=== PATIENT | female | born 1970 | race Caucasian/White ===

== ENCOUNTER 2020-01-13 10:46 | Inpatient (IN) ==
[2020-01-13] MEDS ORDERED: cefOXitin 2,000 MG in Water for inj. (sterile) 20 ML IVP ONE (11:22)
[2020-01-13] MEDS ORDERED: Promethazine 6.25 MG in 0.9 % Sodium Chloride 50 ML IVPB PRN (11:26)
[2020-01-13] MEDS ORDERED: Ringers Solution, Lactated 1,000 ML IVC SCH (11:30)
[2020-01-13] MEDS ORDERED: *HR* Propofol 200 MG/20 ML VIAL IVP ONE (12:03)
[2020-01-13] MEDS ORDERED: *HR* Rocuronium Bromide 50 MG/5 ML VIAL ONE ×2 (12:04→14:46)
[2020-01-13] MEDS ORDERED: Ondansetron 4 MG/2 ML VIAL ONE (12:04)
[2020-01-13] MEDS ORDERED: Dexamethasone 4 MG/ML VIAL ONE (12:04)
[2020-01-13] MEDS ORDERED: Lidocaine -MPF 2% 2 ML VIAL ONE (12:04)
[2020-01-13] MEDS ORDERED: *HR* Midazolam HCl 2 MG/2 ML VIAL ONE (12:15)
[2020-01-13] MEDS ORDERED: *HR* FentaNYL (PF) 100 MCG/2 ML VIAL ONE ×3 (12:15→15:47)
[2020-01-13] MEDS ORDERED: Neostigmine Methylsulfate 3 MG/3 ML SYRINGE ONE (14:21)
[2020-01-13] MEDS ORDERED: *HR* HYDROMORPHONE 2 MG/ML VIAL ONE (14:22)
[2020-01-13] MEDS ORDERED: *HR* Metoprolol 5 MG/5 ML VIAL IVP ONE (15:40)
[2020-01-13] MEDS: *HR* HYDROmorphone PF 0.5 MG/0.5 ML SYRINGE IVP PRN ×4 (16:18→16:57)
[2020-01-13] MEDS: Promethazine 6.25 MG in Water for inj. (sterile) 20 ML IVPB PRN ×2 (16:35→16:52)
[2020-01-13] MEDS ORDERED: Naloxone 0.4 MG/ML INJ IVP PRN (17:59)
[2020-01-13] MEDS ORDERED: Ondansetron 4 MG/2 ML VIAL IVP PRN (17:59)
[2020-01-13] MEDS ORDERED: Sennosides 8.6 MG TABLET PO PRN (17:59)
[2020-01-13] MEDS: Ringers Solution, Lactated 1,000 ML IVC SCH (18:54)
[2020-01-13] MEDS: Ibuprofen 600 MG TABLET PO SCH (18:57)
[2020-01-13] MEDS: Acetaminophen 325 MG TABLET PO SCH (18:57)
[2020-01-13] MEDS: *HR* OxyCODONE Immed Rel 5 MG TABLET PO PRN (23:20)
[2020-01-14] MEDS: Acetaminophen 325 MG TABLET PO SCH ×3 (00:52→15:57)
[2020-01-14] MEDS: cefOXitin 1,000 MG in Water for inj. (sterile) 10 ML IVP SCH ×3 (00:52→15:59)
[2020-01-14] MEDS: Ibuprofen 600 MG TABLET PO SCH ×3 (00:52→15:57)
[2020-01-14] MEDS: Ringers Solution, Lactated 1,000 ML IVC SCH ×2 (00:53→12:17)
[2020-01-14] MEDS: *HR* OxyCODONE Immed Rel 5 MG TABLET PO PRN ×4 (02:55→21:09)
[2020-01-15] MEDS: Acetaminophen 325 MG TABLET PO SCH ×3 (00:08→12:33)
[2020-01-15] MEDS: Ibuprofen 600 MG TABLET PO SCH ×3 (00:09→12:32)
[2020-01-15] MEDS: *HR* OxyCODONE Immed Rel 5 MG TABLET PO PRN ×3 (01:58→11:26)
[2020-01-15 06:26] VITALS: BP 126/70
[2020-01-15 09:11] LABS: Hemoglobin 10.7 g/dL (11.5-15.4); Mean Corpuscular Volume 93.4 fL (83.0-100.0); Platelet Count 122 K/mcL (140-400); Red Cell Distribution Width 13.9 % (11.5-14.5)
[2020-01-15 09:13] LABS: Basophils # 0.1 K/mcL (0.0-0.2); Basophils % 0.4 %; Eosinophils # 0.1 K/mcL (0.0-0.6); Eosinophils % 0.7 %; Hematocrit 32.8 % (35.3-44.9); Immature Granulocytes % 0.2 % (0-4); Immature Platelets 7.6 % (1.1-6.1); Lymphocytes # 4.3 K/mcL (0.6-4.6); Lymphocytes % 35.2 %; Mean Corpuscular HGB Conc 32.6 g/dL (31.6-35.5); Mean Corpuscular Hemoglobin 30.5 pg (28.0-33.3); Mean Platelet Volume 11.9 fL (9.4-12.4); Monocytes % 7.9 %; Neutrophils # 6.8 K/mcL (1.6-8.9); Red Blood Count 3.51 M/mcL (3.82-4.97); Segmented Neutrophils % 55.6 %; White Blood Count 12.2 K/mcL (4.3-11.1)
== END 2020-01-15 17:02 | disposition home or self-care (01) | DRG 519 ==
LOC: SAMDAY 10:46 → 1NENUOBS 17:34
PROVIDERS: ADMIT Student in an Organized Health Care Education/Training Program; ATTEND Student in an Organized Health Care Education/Training Program